=== PATIENT | male | born 1935 | race Caucasian/White ===

== ENCOUNTER → 2017-01-13 | Outpatient (REF) | payer MEDICARE ==
[~2017-01-13] MED LIST: ASPI-860 PO; AZIT500T PO; FLUO20CA42 PO; HYDR-3702 PO; PITA2TAB PO
[2017-01-13 15:34] LABS: BASOPHILS % (AUTO) 1 % (0-2); EOSINOPHILS # (AUTO) 0.1 10^3uL; EOSINOPHILS % (AUTO) 2 % (0-4); LYMPHOCYTES # (AUTO) 1.7 X10^3; MEAN CORPUSCULAR HGB CONC 33.4 g/dL (31.0-37.0); MEAN CORPUSCULAR VOLUME 96 FL (80-100); MEAN PLATELET VOLUME 12.3 FL (6.0-9.5); MONOCYTES # (AUTO) 0.5 X10^3; MONOCYTES % (AUTO) 8 % (3-11); NEUTROPHILS # (AUTO) 3.7 X10^3; NEUTROPHILS % (AUTO) 61 % (51-67); PLATELET COUNT 182 10^3uL (150-450); WHITE BLOOD COUNT 5.99 10^3uL (4.0-11.0)
[2017-01-13 15:40] LABS: ALBUMIN 3.8 g/dL (3.4-5.0); ANION GAP 13.2 MEQ/L (3-15); CALCULATED IONIZED CALCIUM 4.4 mg/dL (3.8-4.6); TOTAL PROTEIN 6.8 g/dL (6.4-8.5)
[2017-01-13 15:50] LABS: MEAN CORPUSCULAR HEMOGLOBIN 32.2 PG (26.0-34.0)
== END ==
LOC: LAB 14:47
PROVIDERS: ATTEND Physician Assistant Surgical
DX: R53.83 Other fatigue (principal)
CPT/HCPCS: 80053; 84443; 85025